=== PATIENT | male | born 1960 | race Native Hawaiian/Other Pacific Islander ===

== ENCOUNTER 2024-10-30 12:51 | Emergency (ER) | payer BC, SELFPAY ==
[2024-10-30] VITALS (16 sets, daily range): BP systolic 147–195; BP diastolic 84–107; PULSE 84–101; RESP 17–26; TEMP 36.1; O2SAT 93–98; BMI 28.8
--- NOTE | 2024-10-30 13:01 | DI.RAD.S_ITS ---
PROCEDURE: XR CHEST 1V INDICATIONS: Chest Pain TECHNIQUE: One view of the chest was acquired. COMPARISON: None. FINDINGS: Surgical changes and devices: None. Lungs and pleura: Lungs are clear. No pleural effusions or pneumothorax. Mediastinum: Mediastinal contours appear normal. Heart size is normal. Bones and chest wall: No suspicious bony lesions. Overlying soft tissues appear unremarkable. IMPRESSION: No acute cardiopulmonary abnormality is seen. Dictated by: Néstor Manjarrez M.D. on 10/30/2024 at 13:41 Approved by: Néstor Manjarrez M.D. on 10/30/2024 at 13:42
--- NOTE | 2024-10-30 13:01 | EKG_ITS ---
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
[2024-10-30 13:29] LABS: Add Manual Diff / Slide Review NO; Basophils Absolute Auto 0 /uL (0-100); Basophils Percent Auto 0.3 % (0-2); Eosinophils Absolute Auto 0 /uL (0-450); Eosinophils Percent Auto 0.2 % (2-4); Hematocrit 47.1 % (41-53); Hemoglobin 15.3 g/dL (13.5-17.5); Lymphocytes Absolute Auto 1000 /uL (1100-4500); Lymphocytes Percent Auto 7.6 % (25-40); Mean Corpuscular HGB Conc 32.4 % (30-36); Mean Corpuscular Hemoglobin 29.2 PG (26-34); Monocytes Absolute Auto 400 /uL (0-900); Neutrophils Absolute Auto 11200 /uL (1500-7000); Neutrophils Percent Auto 88.9 % (50-75); Platelet Count 261 X10^3/uL (150-400); Red Blood Cell Count 5.23 X10^6/uL (4.5-5.9); Red Cell Distribution Width 13.5 % (11.6-14.8); White Blood Cell Count 12.6 X10^3/uL (4.5-11.0)
--- NOTE | 2024-10-30 13:30 | ED_ITS ---
HPI - Abdominal Pain General Chief Complaint: Abdominal Pain Stated Complaint: stomach pain going all the way up to the chest Time Seen by Provider: 10/30/24 13:13 Source: patient Mode of arrival: Ambulatory History of Present Illness HPI narrative: 64-year-old male presents with ?indigestion. ? He reports for the last week has had intermittent symptoms of indigestion such as abdominal discomfort. This morning pain seemed to extend into the chest. He has associated nausea and feels sweaty. He does feel that symptoms are worse with food, last night had some pizza and chips in this morning symptoms seem to be worse. No known fever. Related Data Allergies Allergy/AdvReac Type Severity Reaction Status Date / Time No Known Drug Allergies Allergy Verified 10/30/24 13:19 Review of Systems Review of Systems Narrative: Pertinent ROS obtained and negative except as stated in HPI Patient History Social History Smoking Status: Never smoker Smoking Status: Never smoker Exam Initial Vital Signs Initial Vital Signs: Vital Signs Temperature 97.0 F L 10/30/24 12:56 Pulse Rate 84 10/30/24 12:56 Respiratory Rate 18 10/30/24 12:56 Blood Pressure 195/103 H 10/30/24 12:56 Pulse Oximetry 98 10/30/24 12:56 Oxygen Delivery Method Room Air 10/30/24 12:56 Constitutional: Well appearing, no acute distress Head: NCAT Cardiovascular: RRR, no murmur or rub Pulmonary: CTA bilaterally, no respiratory distress Abdominal: soft, pt does not react with palpation of abdomen, localizes pain across upper abdomen and chest Extremities: No LE edema Skin: warm and +diaphoresis Neurological: Alert and oriented x3 Course Orders Ordered: Heparin Sodium/Dextrose (Heparin Drip) 25,000 unit in 500 mls @ 20.684 mls/hr IV CONT AVA; Protocol Last Admin: 10/30/24 14:54 Dose: 12 units/kg/hr, 20.684 mls/hr Documented By: Co-signed By: RL Discontinued Medications Aspirin (Aspirin 81 Mg Chew Tab) 324 mg PO NOW ONE Stop: 10/30/24 13:01 Last Admin: 10/30/24 13:55 Dose: 324 mg Documented By: Aspirin (Aspirin 81 Mg Chew Tab) 324 mg PO NOW ONE Stop: 10/30/24 13:25 Last Admin: 10/30/24 14:06 Dose: Not Given Documented By: Clopidogrel Bisulfate (Clopidogrel 75 Mg Tablet) 300 mg PO NOW ONE Stop: 10/30/24 14:42 Last Admin: 10/30/24 14:53 Dose: 300 mg Documented By: Heparin Sodium (Porcine) (Heparin 5,000 Unit/Ml Vial) 4,000 unit IV NOW ONE Stop: 10/30/24 14:26 Last Admin: 10/30/24 14:52 Dose: 4,000 unit Documented By: Sodium Chloride (Normal Saline 0.9%) 1,000 mls @ 1,000 mls/hr IV BOLUS ONE Stop: 10/30/24 14:53 Last Admin: 10/30/24 14:12 Dose: 1,000 mls/hr Documented By: Morphine Sulfate (Morphine 4 Mg/Ml Inj) 4 mg IV NOW ONE Stop: 10/30/24 13:59 Last Admin: 10/30/24 14:17 Dose: 4 mg Documented By: Nitroglycerin (Nitroglycerin 0.4 Mg Sl Tab) 0.4 mg SL [id number] PRN PRN Reason: Chest Pain Last Admin: 10/30/24 14:18 Dose: 0.4 mg Documented By: Admin: 10/30/24 14:06 Dose: 0.4 mg Documented By: Admin: 10/30/24 13:58 Dose: 0.4 mg Documented By: Vital Signs Vital signs: Vital Signs - 8 hr 10/30/24 12:56 Temperature 97.0 F L Pulse Rate 84 Respiratory Rate 18 Blood Pressure 195/103 H Pulse Oximetry 98 Oxygen Delivery Method Room Air MDM - Abdominal Pain Lab Data 10/30/24 13:19 10/30/24 13:19 Labs: Lab Results 10/30/24 Range/Units 13:19 WBC 12.6 H (4.5-11.0) X10^3/uL RBC 5.23 (4.5-5.9) X10^6/uL Hgb 15.3 (13.5-17.5) g/dL Hct 47.1 (41-53) % MCV 90.0 (80-100) fL MCH 29.2 (26-34) PG MCHC 32.4 (30-36) % RDW 13.5 (11.6-14.8) % Plt Count 261 (150-400) X10^3/uL Neut % (Auto) 88.9 H (50-75) % Lymph % (Auto) 7.6 L (25-40) % [facility] % (Auto) 3.0 (3-14) % Eos % (Auto) 0.2 L (2-4) % Baso % (Auto) 0.3 (0-2) % Neut # (Auto) 08682 H (9786-0597) /uL Lymph # (Auto) 1000 L (2249-5748) /uL [facility] # (Auto) 400 (0-900) /uL Eos # (Auto) 0 (0-450) /uL Baso # (Auto) 0 (0-100) /uL PT 10.7 (9.4-12.5) SECONDS INR 0.9 (0.9-1.3) APTT 42 H (25.1-36.5) SECONDS Sodium 138 (137-145) mmol/L Potassium 5.2 H (3.4-5.1) mmol/L Chloride 103 (98-107) mmol/L Carbon Dioxide 23 (22-32) mmol/L BUN 30 H (9-20) mg/dL Creatinine 2.30 H (0.66-1.25) mg/dL Estimated GFR 31 L (>60) mL/min BUN/Creatinine Ratio 13.0 (6-22) Glucose 183 H (70-99) mg/dL Calcium 9.5 (8.4-10.2) mg/dL Magnesium 1.9 (1.6-2.3) mg/dL Total Bilirubin 0.7 (0.2-1.3) mg/dL AST 49 (17-59) IU/L ALT 31 (<50) IU/L Alkaline Phosphatase 77 (38-126) U/L Total Creatine Kinase 419 H (55-170) U/L Troponin I 1.290 H* (0.01-0.034) ng/mL NT-Pro-B Natriuret Pep 54 (<125) pg/mL Total Protein 8.7 H (6.3-8.2) g/dL Albumin 5.1 H (3.5-5.0) g/dL Globulin 3.6 (1.7-4.1) g/dL Albumin/Globulin Ratio 1.4 (1.0-2.8) Lipase 167 (23-300) U/L MDM Narrative Medical decision making narrative: In brief, this is a 64-year-old male with self-reported significant cardiac history including ?8 stents? as recently as 2011, has previously followed with [facility] and [facility], here with intermittent abdominal discomfort the past week with nausea/dyspepsia, chest discomfort since this morning. Reports no significant pain with prior UT but did note had feelings of sweatiness then. In chart review: No prior past medical history to review. I have requested records from [facility] cardiology On arrival to the emergency department, the patient is in no acute distress. He is noted to be hypertensive and slightly diaphoretic. No LE edema. He holds his hand over his upper abdomen as area of indigestion. He and family appropriately concerned regarding chest pain he developed today. Differential diagnoses considered but not limited to: ACS, dyspepsia, pancreatitis, biliary colic/choledocolithiasis, gastritis/GERD. Presentation less consistent with acute aortic syndrome. Pt well perfused without tearing/ripping sensation Initial treatment plan includes: send laboratories including serial troponins, serial EKGs as well, will give ASA, try NTG, reach out to cardiology colleagues to see if can review initial EKG as does not meet STEMI criteria, however given pt history he may benefit from more urgent transfer to [facility] where can be evaluated by housekeeper home for possible cath EKG 1306: Normal sinus rhythm rate of 85, normal SD 170, QRS 96, QTC 449. Normal axis. There is less than 1 mm elevation V1, less than [address]-elevation in V2, less than 1 ST elevation in V3. There may be less than [address] depressions in 3, AVF. Spoke with telecommunications consultant Dr. Harris at 1345 regarding patient presentation, past medical history as far as I am aware, EKGs. He is able to review serial EKGs and agrees does not meet STEMI criteria, recommends pain control, serial troponins. If elevated, rec's transfer ED to ED for urgent eval by cardiology Laboratories pertinent for: Elevated BUN, Cr 2.3 although no recent Cr for comparison. Awaiting troponin. Imaging pertinent for: CXR WNL Troponin is elevated 1.29. Serial EKGs I think suggestive Wellens type pattern. Patient has no improvement of pain with nitroglycerin. I have ordered heparin bolus and drip, IV morphine, DAPT. Pt & updated regarding plan for ALS transfer to [facility] ED Spoke with [facility] airline mechanic at 1430 agrees with ED ED transfer. ED attending not available. Will call back with ED attending/cards, rec send EKGs, arrange transport, & let know ETA Dr. Alfonso Frazier accepts pt in transfer at 1443. Pt remains stable in ED prior to transfer. Upon my evaluation, this patient had a high probability of imminent or life- threatening deterioration due to ACS, which required my direct attention, intervention, and personal management. I have personally provided 40 minutes of critical care time exclusive of time spent on separately billable procedures. Time includes review of laboratory data, radiology results, discussion with consultants, and monitoring for potential decompensation. Interventions were performed as documented above. Jagruti Rodriguez MD Discharge Plan Departure Referrals: Rush Mcgee MD [Primary Care Provider, Internal Medicine]
--- NOTE | 2024-10-30 13:32 | EKG_ITS ---
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
[2024-10-30 13:34] LABS: INR 0.9 (0.9-1.3); Prothrombin Time 10.7 SECONDS (9.4-12.5)
[2024-10-30 13:40] LABS: Alanine Aminotransferase 31 IU/L (<50); Albumin 5.1 g/dL (3.5-5.0); Albumin Globulin Ratio 1.4 (1.0-2.8); Alkaline Phosphatase 77 U/L (38-126); Aspartate Aminotransferase 49 IU/L (17-59); Bilirubin Total 0.7 mg/dL (0.2-1.3); Blood Urea Nitrogen 30 mg/dL (9-20); Calcium 9.5 mg/dL (8.4-10.2); Carbon Dioxide 23 mmol/L (22-32); Chloride 103 mmol/L (98-107); Creatine Kinase 419 U/L (55-170); Estimated Glomerular Filt Rate 31 mL/min (>60); Globulin 3.6 g/dL (1.7-4.1); Glucose 183 mg/dL (70-99); HEMOLYSIS 38 (0-50); Lipase 167 U/L (23-300); Magnesium 1.9 mg/dL (1.6-2.3); Potassium 5.2 mmol/L (3.4-5.1); Sodium 138 mmol/L (137-145); Total Protein 8.7 g/dL (6.3-8.2)
--- NOTE | 2024-10-30 13:40 | EKG_ITS ---
[address] [address] Test Date: 2024-10-30 Pat Name: Rehan Sandoval Department: Room: Gender: Male Clinical Therapist: ZACH : 1960 Requested By: Order Number: [id number] Reading MD: Sami Dawkins MD Measurements Intervals [place] Rate: 88 P: 63 MO: 162 QRS: 12 QRSD: 82 T: 80 QT: 376 QTc: 454 Interpretive Statements Normal sinus rhythm Anteroseptal infarct , age undetermined Electronically Signed On 10-30-2024 15:01:20 PDT by Sami Dawkins MD
[2024-10-30 13:42] LABS: PTT Partial Thromboplastin Tim 42 SECONDS (25.1-36.5)
[2024-10-30 13:52] LABS: NT-proBNP (BNP-Adult 18+) 54 pg/mL (<125)
[2024-10-30] MEDS: ASPIRIN 81 MG CHEW TAB 324 MG PO (13:55)
[2024-10-30] MEDS: NITROGLYCERIN 0.4 MG SL TAB SL ×3 (13:58→14:18)
--- NOTE | 2024-10-30 14:02 | PC.NURSE ---
Pt reports some discomfort to left side of chest, /. Says that pain has really gone down since coming to ER.
[2024-10-30] MEDS: SODIUM CHLORIDE 0.9% 1,000 ML 1000 ML IV (14:12)
[2024-10-30] MEDS: MORPHINE 4 MG/ML INJ IV (14:17)
--- NOTE | 2024-10-30 14:23 | PC.NURSE ---
Pt continues to have mild discomfort to left side of chest after administration of three nitro tabs. MD notified of trop level. MD in room with pt.
--- NOTE | 2024-10-30 14:30 | EKG_ITS ---
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
[2024-10-30] MEDS: HEPARIN 5,000 UNIT/ML VIAL 4000 UNIT IV (14:52)
[2024-10-30] MEDS: CLOPIDOGREL 75 MG TABLET 300 MG PO (14:53)
[2024-10-30] MEDS: HEPARIN DRIP 25,000 UNIT/500 ML IV.SOLN 20.684 UNIT IV (14:54)
--- NOTE | 2024-10-30 14:59 | PC.NURSE ---
Reported to EMS crew. Pt placed in transport gurluxor by EMS and sent to [facility].
== END 2024-10-30 15:10 | disposition short-term general hospital (02) ==
PROVIDERS: Emergency Provider Student in an Organized Health Care Education/Training Program; PCP Internal Medicine
DX: R10.9 Unspecified abdominal pain (principal); I24.9 Acute ischemic heart disease, unspecified; R11.0 Nausea; R07.9 Chest pain, unspecified; Z95.5 Presence of coronary angioplasty implant and graft; I25.2 Old myocardial infarction; I10 Essential (primary) hypertension
CPT/HCPCS: 36415; 71045; 80053; 82550; 83690; 83735; 83880; 84484; 85025; 85610; 85730; 93005; 93010; 96374; 96375; 99284; 99291; J1644; J2270